=== PATIENT | female | born 1965 | race Caucasian/White ===

== ENCOUNTER → 2016-05-04 | Day surgery (SDC) | payer BC ==
[~2016-05-04] MED LIST: BELLADONNA ALKALOIDS/OPIUM 60 MG SUPP ONE; GENTAMICIN SULFATE 80 MG/2 ML VIAL ONE; KETOROLAC TROMETHAMINE 30 MG/ML (IVP) VIAL IV PUSH ONE; LACTATED RINGER'S 1000 ML INJ 1,000 ML ONE; LIDOCAINE HCL 2% JELLY 5 ML SYRINGE ONE; MIDAZOLAM HCL 2 MG/2 ML VIAL ONE; ONDANSETRON HCL 4 MG/2 ML VIAL IV PUSH ONE; ONDANSETRON HCL 4 MG/2 ML VIAL ONE; PROPOFOL 200 MG/20 ML AMP IV ONE; SODIUM CHLORIDE 0.9% SOLN 100 ML (PAB) BAG IV ONE
--- NOTE | 2016-05-04 16:15 | TN ---
cc: PATTI ESTEVES M.D. DATE OF SURGERY: 05/04/2016 PREOPERATIVE DIAGNOSIS Left ureteral vesicle junction calculus (ICD-10 code N20.1). POSTOPERATIVE DIAGNOSIS No stone identified in the left ureter. PROCEDURE: The procedure was cystourethroscopy with left ureteroscopy and (CPT code 21022) INDICATION Miss Jackson is a 51 year old woman with a horseshoe kidney and A large stone burden. ovale woman with a horseshoe kidney and a large stone burden who recently presented with acute left flank pain and has found to have a 5 mm left ureteral vesicle junction calculus and has continued to have intermittent discomfort presents now for definitive treatment after failing a trial of medical expulsive therapy. FINDINGS: findings were normal urethra and bladder. The ureteral orifice normal size, shape and position effluxing clear urine bilaterally. There are no umm tumors adenomatous or calcifications identified within the bladder. The ureteroscopy shows no evidence of any stone identified. There is some dilatation of the ureter all the way to the ureteral pelvic junction but no stone was identified throughout the ureter. PROCEDURE Procedure as well as risks and benefits were explained to the patient. Informed consent was obtained the patient was taken major operative theater where she was placed in supine position. The patient was identified as well as the operative site. A universal time-out was performed in standard fashion. At this time general anesthetic and prophylactic intravenous antibiotics consisting of gentamicin 80 mg was administered after adequate anesthetic she was placed in low dorsolithotomy position and prepped and draped usual sterile fashion. At this time a 22.5 Filipino obturator and sheath were placed into the bladder. The obturator removed and a 30 lens cystoscope was placed. The bladder was systematically surveyed attention was directed left ureteral orifice where under fluoroscopic guidance a 0.035-inch hybrid guidewire was placed without difficulty up the ureter into the renal pelvis under fluoroscopy. At this time a second wire was placed a 0.035 inches Velez wire. Again without difficulty. At this time the cystoscope was removed and a semi rigid mini ureteroscope was placed over the working wire. The safety wire was attached to the drape. At this time the scope was placed all the way into the ureter up the ureter to the right renal pelvis. There was no stone identified again slowly removing the ureteroscope. There was no stone or damage identified. There was some dilatation from problem presumably previously passed stone. At this time the ureteroscope was removed as well as the safety wire and a cystoscope was placed back into the bladder. There appeared to be good efflux of urine from the ureteral orifice with minimal bleeding and the bladder was then decompressed cystoscope removed. The patient tolerated procedure well, emerged from anesthetic without difficulty and transferred to the recovery room in stable condition to be discharged when criteria is met. There are no obvious complications. MD SAMIR Smiley/brenden /3:53 PM /3:58 PM
== END | disposition home or self-care (01) ==
LOC: ESDC 09:39
PROVIDERS: ATTEND Urology
DX: N20.1 Calculus of ureter (principal)
CPT/HCPCS: 00910; 52351; 76000; J1580; J1885; J2250; J2405; J3010; J7120; C1769